=== PATIENT | female | born 1980 | race Caucasian/White ===

== ENCOUNTER 2016-08-14 05:57 | Day surgery (SDC) | payer OTHER ==
--- NOTE | 2016-08-12 17:40 | HP ---
KATERYNA ACKERMAN [id number] DESCRIPTION OF PROCEDURE: 08/14/2016 PREOPERATIVE DIAGNOSIS: Ovarian mass. PROCEDURE: LAPAROSCOPIC SALPINGOOOPHORECTOMY AND POSSIBLE LAPAROTOMY. HISTORY OF PRESENT ILLNESS: The patient is a 35-year-old nulligravida who has a history of endometriosis. In 2009 the patient was undergoing evaluation and treatment for infertility and had several treatments with Clomid, which were unsuccessful. Subsequently the patient had a laparoscopy in 2009 at [facility] and she was told that both ovaries showed endometriosis and that the tubes were blocked. Subsequently the patient has had one heavy and painful period since surgery, but then was amenorrheic. Upon evaluation a pelvic ultrasound was ordered. This showed an anteverted uterus, measuring 7.5 x 3.6 x 4.3 cm. There is no leiomyoma identified. The endometrial thickness was 1.6 cm. The adnexa showed a large cystic lesion which was midline and superior to the uterus. Septations were suggested. It measures 5.3 x 2.9 x 6.5 cm. The left ovary was 3.1 x 3.2 x 1.5 cm, with Doppler flow. This largest cystic lesion was thought to be originating from the right adnexa or right ovary. The patient's estradiol level was 48 and FSH was 7. TSH was 1.6. The patient had a negative Pap smear. The patient continues to have chronic pelvic pain, however, states that her pain was left greater than right, and oral contraceptives have not been helpful. PAST OB/FYN HISTORY: 1. The patient is a nulligravida, with a history of endometriosis and infertility. The patient is status post laparoscopy in 2009 for ablation of the endometriosis, however, operative reports are not available at the time of dictation. 2. The patient denies a history of abnormal Pap smears or sexually transmitted disease. PAST MEDICAL HISTORY: 1. The patient has a history of high cholesterol. 2. She also has a history of anxiety, for which she is on Celexa. 3. The patient also has chronic pain syndrome, for which she is on meloxicam and cyclobenzaprine 3. GERD, for which she is on omeprazole. PAST SURGICAL HISTORY: Laparoscopy in 2009. ALLERGIES: The patient states she has allergies to codeine and Vicodin. PHYSICAL EXAMINATION: GENERAL: The patient is alert and appropriate, in no apparent distress. HEART: Regular rate and rhythm. LUNGS: Clear to auscultation bilaterally. ABDOMEN: Moderately obese. There are no masses. Nondistended and nontender. PELVIC: Uterus is anteverted, small and mobile. There is minimal tenderness on exam. There is no descent. Adnexa, there are no palpable masses or tenderness. ASSESSMENT/PLAN: This is a 35-year-old nulligravida with a history of endometriosis and a right adnexal mass measuring 5-6 cm. I recommended right salpingo-oophorectomy at this point, as it may alleviate patient's chronic pelvic pain, however, there is somewhat of a discrepancy, as the patient's states her pain is left greater than right. We will also evaluate intraoperatively the left adnexa as well, however, the objective data shows a right adnexal mass. The procedure, indications and risks have been reviewed, including the risks of bleeding, injection or injury to bowel, bladder or other organs. Preoperative instructions and postoperative expectations have been reviewed. We will check a CBC and HCG prior to this procedure. The patient is aware that this procedure may help alleviate her pain, however, there is a possibility that she continues to have chronic pelvic from endometriosis. The patient also is aware that this procedure will not improve her chances for fertility.
[2016-08-14] MEDS ORDERED: LACTATED RINGERS 1,000 ML ONE (05:59)
[2016-08-14] MEDS ORDERED: IV START KIT ONE (06:00)
[2016-08-14] MEDS ORDERED: LIDOCAINE 1%/EPI (MULTI DOSE) 20 ML VIAL ONE (06:47)
[2016-08-14] MEDS ORDERED: SODIUM CHLORIDE 0.9% FLUSH 10 ML ONE (06:47)
[2016-08-14] MEDS ORDERED: ROCURONIUM BROMIDE 10 MG/ML DOSE IV ONE ×3 (06:57→08:27)
[2016-08-14] MEDS ORDERED: MIDAZOLAM HCL 1 MG/ML 2ML VIAL ONE (06:57)
[2016-08-14] MEDS ORDERED: PROPOFOL 20 ML IV ONE (06:57)
[2016-08-14] MEDS ORDERED: FENTANYL 100 MCG/2 ML VIAL ONE ×3 (06:59→08:11)
[2016-08-14] MEDS ORDERED: ONDANSETRON 4 MG/2ML 2 ML VIAL ONE (07:01)
[2016-08-14] MEDS ORDERED: DEXAMETHASONE SOD PHOS 4 MG/1 ML VIAL ONE (07:01)
[2016-08-14] MEDS ORDERED: SCOPOLAMINE 1.5 MG/72 HR 1 EACH PATCH TD ONE (07:05)
[2016-08-14] MEDS ORDERED: NALOXONE HCL 0.4 MG/ML VIAL IV PRN (07:39)
[2016-08-14] MEDS ORDERED: HYDRALAZINE HCL 20 MG/1 ML VIAL IV PRN (07:39)
[2016-08-14] MEDS ORDERED: ONDANSETRON 4 MG/2ML 2 ML VIAL IV PRN ×2 (07:39→10:31)
[2016-08-14] MEDS ORDERED: LABETALOL HCL 5 MG/ML 20ML VIAL IV PRN (07:39)
[2016-08-14] MEDS ORDERED: ATROPINE SULFATE 0.4 MG/1 ML VIAL IV PRN (07:39)
[2016-08-14] MEDS ORDERED: FENTANYL 100 MCG/2 ML VIAL IV PRN (07:39)
[2016-08-14] MEDS ORDERED: MEPERIDINE 25 MG/ML SYRINGE IV PRN (07:39)
[2016-08-14] MEDS ORDERED: PROMETHAZINE HCL 25 MG/ML VIAL IM PRN (07:39)
[2016-08-14] MEDS ORDERED: HYDROMORPHONE HCL 1 MG/ML SYRINGE IV PRN (07:39)
[2016-08-14] MEDS ORDERED: LACTATED RINGERS 1,000 ML IV SCH ×2 (07:45→10:31)
[2016-08-14] MEDS ORDERED: EPHEDRINE SULFATE 50 MG/ML 1ML VIAL ONE (07:51)
[2016-08-14] MEDS ORDERED: GLYCOPYRROLATE 0.2 MG/ML 1ML VIAL ONE ×4 (07:51→08:53)
[2016-08-14] MEDS ORDERED: NEOSTIGMINE METHYLSULFATE 1 MG/ML DOSE ONE ×3 (08:11→08:53)
[2016-08-14] MEDS ORDERED: HYDROMORPHONE HCL 2 MG/ML SYRINGE ONE (08:39)
[2016-08-14] MEDS ORDERED: HYDROMORPHONE HCL 1 MG/ML SYRINGE ONE (09:52)
[2016-08-14] MEDS ORDERED: OXYCODONE/ACETAMINOPHEN 5/325 MG TABLET PO PRN (10:31)
[2016-08-14] MEDS ORDERED: KETOROLAC TROMETHAMINE 30 MG/ML 1 ML VIAL IV PRN (10:31)
--- NOTE | 2016-08-14 10:34 | OP ---
Trinity Mcdaniel [id number] DATE OF PROCEDURE: 08/14/2016 PREOPERATIVE DIAGNOSES: 1. Right ovarian cyst. 2. Chronic pelvic pain. POSTOPERATIVE DIAGNOSES: 1. Large right hydrosalpinx. 2. Left hydrosalpinx. 3. Right ovarian cyst. 4. Endometriosis. PROCEDURES: 1. Laparoscopy. 2. Right salpingo-oophorectomy. 3. Left salpingectomy. SURGEON: Roldan Sanon M.D. VIDEO CONFERENCE SPECIALIST: Dr. Cain Garcia. ANESTHESIA: General. COMPLICATIONS: None. ESTIMATED BLOOD LOSS: 50 mL. OPERATIVE FINDINGS: Include a very large right hydrosalpinx, left hydrosalpinx, right ovary which was enlarged and cystic, left ovary which appeared normal, however, with adhesions to the left pelvic wall secondary to endometriosis. OPERATIVE COURSE: The patient was taken to the operating room and placed under general anesthesia. The patient was then placed in lithotomy and prepped and draped in a sterile fashion. A Carias catheter was then placed. A uterine manipulator was then placed. Lidocaine with epinephrine was injected locally at the subumbilical area and a 10 mm vertical incision was made. This section was then elevated with hemostat and a Varess needle was then placed. Intraabdominal placement was confirmed with saline syringe. The abdomen was then insufflated to 15 mmHg of pressure. A 11 mm port was then placed under direct visualization and abdominal placement was confirmed with scope. Subsequently a 10 mm incision was made transversely at this midline suprapubic area and a second 11 mm port was then placed under direct visualization. The patient was then placed in Trendelenburg and the pelvis was surveyed. There was immediately seen a large right hydrosalpinx that was noted and enlarged right ovary with a single cyst. A third port was then placed in the left lower quadrant, this was a 5 mm port that was placed under direct visualization. The right ovary and tube were then elevated and right uteroovarian ligament was then clamped across with 10 mm Ligasure instrument, cauterized and ligated. This proceeded distally until the right tube and ovary were then excised. The tube and ovary were then placed in Endocatch bags and then removed from the central 10 mm incision. The ports were then replaced and attention was then paid to the left side. There appeared to be a hydrosalpinx on the left side of the Fallopian tube and the tube was densely adhered distally to the ovary. This required a fourth port to be placed on the left and superior portion of the left lower quadrant. The patient was then placed further in Trendelenburg and the bowel was then retracted superiorly. The left tube was then placed on traction and dissected with cautery in a blunt fashion off of the ovary and subsequently using 5 mm Ligasure instrument was then excised and removed. The pelvis and left adnexa were then irrigated and suctioned and one point of bleeding at the area of the ovary was then cauterized. Good hemostasis was noted. The left ovary appeared normal with no cysts, however, there was adhesion to the left pelvic wall. There was clear evidence of endometriosis as previously noted. The pelvis was again irrigated and suctioned and found to be hemostatic. All instruments were then removed and abdomen was then desufflated. The ports were then removed. The 10 mm incisions were closed with 0 Vicryl and 3-0 Monocryl and the 5 mm incisions were then closed with 3-0 Monocryl. The uterine manipulator was then removed and the patient was then recovered from anesthesia and taken to the recovery room in stable condition. Estimated blood loss 50 mL. JOB: [id number]
[2016-08-14] MEDS ORDERED: OXYCODONE/ACETAMINOPHEN 5/325 MG TABLET ONE (11:22)
--- NOTE | 2016-08-18 10:25 | SURGPATH ---
[facility] [address] [place] [id number] Patient Name: KATERYNA ACKERMAN MR#: [id number] : 1980 Gender: F Specimen #: [id number] Collected: 08/14/2016 Received: 08/17/2016 Reported: 08/18/2016 Submitting Phys: JEFF CISNEROS Copy To Phys: [facility] Clinical History / Pre-Operative Diagnosis: RIGHT ADNEXAL MASS; PELVIC PAIN; BILATERAL HYDROSALPINX Specimen Source / Surgical Procedure Performed: #1-RIGHT TUBE AND OVARY; #2-LEFT TUBE Interpretation: 1. RIGHT FALLOPIAN TUBE AND OVARY, SALPINGO-OOPHORECTOMY: - MULTIPLE FOLLICULAR CYSTS - BENIGN PARATUBAL CYST - FALLOPIAN TUBE WITH NO DIAGNOSTIC ABNORMALITY 2. LEFT FALLOPIAN TUBE, RESECTION: - NORMAL FALLOPIAN TUBE, SEEN IN COMPLETE CROSS SECTION Electronically Signed Out Kina Rico M.D. Gross Description: #1 The specimen is received in a formalin filled container labeled with the patient's name and "right tube and ovary". An ovoid vasquez-dumont ovary is 4.7 x 3.0 x 2.7 cm and 22 g. Sectioning reveals dense orange dumont parenchyma with numerous peripheral fluid-filled cysts up to 0.4 cm. Separate in the specimen container is a 8.5 x 1 cm purple dumont fallopian tube without fimbriated end. At the distal end is a 2 cm collapsed, thin-walled cystic space. The fallopian tube lumen is dilated. Four sections of ovary and three cross sections of fallopian tube are submitted in cassettes 1A-1E. #2 The specimen is received in a formalin filled container labeled with the patient's name and "left tube". A purple dumont fallopian tube segment is 6.5 x 0.5 cm. There is no fimbriated end. Three nutrition representative cross sections are submitted in cassette #2. Michelle Nichole Microscopic Description: 1. Sections from the ovary show several developing follicular cysts. The fallopian tube has a benign paratubal cyst but is otherwise unremarkable. There is no endometriosis or neoplasia. 2. Left fallopian tube is seen in complete cross section and is otherwise unremarkable. 1: [id number], 59939 Q50.1
== END 2016-08-14 11:50 | disposition home or self-care (01) ==
LOC: SDC 05:57
PROVIDERS: ATTEND Obstetrics & Gynecology
PROC: 0UT74ZZ Resection of Bilateral Fallopian Tubes, Percutaneous Endoscopic Approach (ICD-10-PCS; principal; 2016-08-14)
PROC: 0UT04ZZ Resection of Right Ovary, Percutaneous Endoscopic Approach (ICD-10-PCS; principal; 2016-08-14)
DX: N83.01 Follicular cyst of right ovary (principal); N83.201 Unspecified ovarian cyst, right side; N70.11 Chronic salpingitis; N80.3 Endometriosis of pelvic peritoneum; E78.00 Pure hypercholesterolemia, unspecified; F41.9 Anxiety disorder, unspecified; G89.4 Chronic pain syndrome; K21.9 Gastro-esophageal reflux disease without esophagitis; F17.210 Nicotine dependence, cigarettes, uncomplicated
CPT/HCPCS: 58661; J1170 ×2; J3010 ×3; J1100; A9270 ×2; J1885; J2250; J2405; J7120; J7030